=== PATIENT | male | born 1990 | race Caucasian/White ===

== ENCOUNTER 2020-06-18 12:50 | Emergency (ER) | payer SELFPAY ==
[2020-06-18 12:59] VITALS: BP 151/83; PULSE 98; RESP 18; TEMP 38.8; O2SAT 99
--- NOTE | 2020-06-18 13:14 | ED.URI ---
HPI - URI/Sore Throat General Chief Complaint: Upper Respiratory Infection Stated Complaint: Sore throat Time Seen by Provider: 06/18/20 13:11 Source: patient and RN notes reviewed Mode of arrival: ambulatory Limitations: no limitations History of Present Illness HPI Narrative: 29-year male presents concern for sore throat, white patches on his throat, fever. Reports history of strep. He denies rhinorrhea, nasal congestion, ear pain, cough, shortness of breath, loss of sense of taste or smell, nausea, vomiting, diarrhea, headache. MD elicited complaint: sore throat Related Data Home Medications Medication Instructions Recorded Confirmed metoprolol succinate [Toprol XL] 100 mg PO DAILY 06/18/20 06/18/20 Allergies Allergy/AdvReac Type Severity Reaction Status Date / Time No Known Allergies Allergy Verified 06/18/20 13:12 Review of Systems Review of Systems: Narrative: CONSTITUTIONAL: Denies malaise, chills, sweats, or fever. EYES: Denies visual changes, redness, or discharge. ENT: Denies rhinorrhea, congestion, sinus pain, otalgia. Reports sore throat. CARDIOVASCULAR: Denies chest pain, palpitations, or edema. RESPIRATORY: Denies cough or dyspnea. GASTROINTESTINAL: Denies abdominal pain, nausea, vomiting, diarrhea SKIN: Denies rash or itching. MUSCULOSKELETAL: Denies myalgia. NEUROLOGIC: Denies headache. All systems reviewed & are unremarkable except as noted in HPI and below PMFSH Social History Social History Gender identity (if verbalized by the patient): Male Comments At time of signature, agree with nursing past medical, surgical, social and family history. There is no relevant family history pertinent to the presenting complaint Exam Narrative: Exam Narrative: GENERAL: Well-appearing, well-nourished, and in no acute distress. HEAD: Normocephalic EYES: PERRLA, conjunctivae clear ENT: Nares clear, turbinates pink, no discharge. Mucous membranes moist. TM pearly cevallos with sharp light reflex bilaterally; no tragal tenderness. Oropharynx erythematous without lesions. Tonsils enlarged and with purulent exudate, no drooling, no hoarseness, no trismus, uvula midline. NECK: Supple. No lymphadenopathy CHEST: Clear to auscultation, breath sounds equal. No wheezing, rhonchi, rales, or stridor. No respiratory distress, speaks in full sentences. HEART: Regular rate and rhythm. No murmur heard. SKIN: Warm, dry, no rash. NEURO: Alert and oriented x3. PSYCH: Normal mood and affect Course Course Emergency Course: Patient is aware of diagnosis, understands and agrees to treatment plan. Anticipatory guidance given. Patient agrees to follow-up as directed and is aware of reasons to seek care at the emergency department. Portions of this record may have been created with voice recognition software Vital Signs Vital signs: Reviewed. MDM - URI/Sore Throat MDM Narrative Medical decision making narrative: Differential diagnosis considered: Foster virus, strep pharyngitis, allergic rhinitis, upper respiratory tract infection, sinusitis, rhinosinusitis, nasopharyngitis. viral pharyngitis, otitis media, otitis externa, pneumonia, bronchitis, viral cough syndrome, viral syndrome, and influenza. Exam findings show no acute concerns or changes; patient is non-toxic appearing and is in no distress. Patient is appropriate for outpatient treatment and follow-up. Lab Data Attestation: I reviewed the patient's lab results. Labs: Strep Screen Presumptive Negative *(Reference Range: Negative)* Critical Care Time Critical Care Time Critical Care Time: No Discharge Plan Discharge Clinical Impression: Acute tonsillitis Qualifiers: Pharyngitis/tonsillitis etiology: unspecified etiology Qualified Code(s): J03.90 - Acute tonsillitis, unspecified Patient Disposition: Home, Self-Care Condition: Stable Instructions: Antibiotic Form, Tonsillitis (ED) Additional Instru
--- NOTE | 2020-06-18 13:28 | PC.NURSE ---
1259- Pt states he has not taken his HTN medications today, [employer] notified.
== END 2020-06-18 13:22 | disposition home or self-care (01) ==
PROVIDERS: Emergency Provider Nurse Practitioner; PCP Family Medicine
DX: J03.90 Acute tonsillitis, unspecified (principal)
CPT/HCPCS: 87081; 87880; 99203; G0463

== ENCOUNTER 2023-04-12 00:42 | Emergency (ER) | payer SELFPAY ==
[2023-04-12 00:44] VITALS: BP 178/98; PULSE 95; RESP 20; TEMP 37.1; O2SAT 100
--- NOTE | 2023-04-12 02:48 | ED.GENADULT ---
[facility] - General Adult General Chief complaint: Wound/Laceration Stated complaint: laceration to abd Time Seen by Provider: 04/12/23 02:43 Source: patient Mode of arrival: ambulatory Limitations: no limitations History of Present Illness [facility] narrative: This is a 32-year-old male who presents to the ED with chief complaint of abdominal laceration suffered this evening just prior to arrival. Patient states he was cutting a hose with a box knife and accidentally dragged a knife towards his abdomen. Reports it punctured the upper abdomen creating a small laceration. Reports lots of bleeding at the initial onset but this has since been controlled. Denies any further site of pain or injury. Related Data Home Medications Medication Instructions Recorded Confirmed metoprolol succinate 100 mg 100 mg PO DAILY 06/18/20 06/18/20 tablet,extended release 24 hr (Toprol XL) Allergies Allergy/AdvReac Type Severity Reaction Status Date / Time No Known Allergies Allergy Verified 09/22/21 12:12 Review of Systems Review of Systems: All systems as dictated in [facility] Social History Social History (System 09/22/21 @ 12:12 by Linda Weber) Gender identity (if verbalized by the patient): Male Exam Narrative: GENERAL: Well-appearing, well-nourished, and in no acute distress. HEAD: Normocephalic, atraumatic. EYES: PERRLA and EOMI. ENT: Nares clear, no rhinorrhea or epistaxis. Mucous membranes moist. Oropharynx without tonsillar hypertrophy exudate or other lesions. NECK: Supple. No adenopathy or masses. CHEST: No respiratory distress. Clear to auscultation. No wheezes rales or rhonchi HEART: Regular rate and rhythm. No murmur heard. Normal peripheral pulses. ABDOMEN: Soft, nontender, nondistended, normal active bowel sounds. MSK: Normal range of motion. No edema. SKIN: 1 cm laceration to the right upper abdomen. Wound depth limited to less than a centimeter. No overt contamination. Bleeding controlled. NEURO: Alert and oriented x3. No focal deficits. PSYCH: Normal mood and affect. Course Vital Signs Vital signs: Vital Signs Temperature 98.8 F 04/12/23 00:44 Pulse Rate 95 04/12/23 00:44 Respiratory Rate 20 04/12/23 00:44 Blood Pressure 178/98 H 04/12/23 00:44 Pulse Oximetry 100 04/12/23 00:44 Oxygen Delivery Room Air 04/12/23 00:44 Temperature 98.8 F 04/12/23 00:44 Pulse Rate 95 04/12/23 00:44 Respiratory Rate 20 04/12/23 00:44 Blood Pressure 178/98 H 04/12/23 00:44 Pulse Oximetry 100 04/12/23 00:44 Oxygen Delivery Room Air 04/12/23 00:44 Procedures Laceration Laceration 1: Date: 04/12/23 Time: 03:22 Site: other (abdomen) Side (If applicable): right Size (cm): 1 Description: linear Depth: simple, single layer Local Anesthetic: lidocaine 2% and with epi Amount of anesthesia used (mL): 1 Pre-repair: wound explored, irrigated extensively and deep structures intact ====== Skin Level ====== Skin layer closed with: nylon Size (cm): 5-0 Number of sutures: 3 Technique: simple, interrupted ====== Subcutaneous Layer ====== ====== Muscle Layer ====== ====== Tendon Layer ====== Medical Decision Making MDM Narrative Medical decision making narrative: This is a 32-year-old male who presents to the ED with chief complaint of right-sided abdominal laceration after accidentally cutting himself with a box knife. Vitals are normal. Exam shows 1 cm laceration to the right side of the mid abdomen. Bleeding controlled. Tetanus is updated here. Wound was well cleaned and irrigated here in the department. Sutures placed. Laceration instructions given. Pt will be discharged in stable condition. Return precautions given and supportive measures discussed. Pt is understanding and agreeable with plan for discharge and follow-up with PCP. Vital Signs
[2023-04-12] MEDS: TETANUS,DIPHTHERIA,AC PERTUSSIS ADULT (0.5 ML) BOOSTRIX IM (03:20)
[2023-04-12 03:43] VITALS: BP 144/79; PULSE 75; RESP 15; O2SAT 99
== END 2023-04-12 03:44 | disposition home or self-care (01) ==
LOC: ANHED 03:38
PROVIDERS: Emergency Provider Physician Assistant; PCP Family Medicine
DX: S31.119A Laceration without foreign body of abdominal wall, unspecified quadrant without penetration into peritoneal cavity, initial encounter (principal); Z23 Encounter for immunization; W26.0XXA Contact with knife, initial encounter
CPT/HCPCS: 12001; 90471; 90715; 99282